=== PATIENT | female | born 1930 | race Caucasian/White ===

== ENCOUNTER 2018-10-06 08:42 | Inpatient (IN) ==
[2018-10-06 09:34] LABS: Hematocrit 41.3 % (37.0-47.0); Hemoglobin 13.4 gm/dL (12.5-16.0); Mean Cell Volume 97.9 fl (78-100); Mean Corpuscular Hemoglobin 31.8 pg (27-31); Mean Corpuscular Hgb Conc 32.4 g/dl (32-36); Mean Platelet Volume 10.8 fl (8-12.5); Neutrophil # 3.1 K/mm3 (1.3-6.0); Neutrophil % 60.7 % (42-75.0); Platelet Count 212 K/mm3 (150-450); Red Blood Count 4.22 M/mm3 (4.2-5.4); Red Cell Distribution Width 14.2 % (11.5-14.0); White Blood Count 5.1 K/mm3 (4.0-10.5)
[2018-10-06 09:50] LABS: Albumin * 3.3 gm/dl (3.4-5.0); Anion Gap 10.5 mmol/L (6.8-13.8); BUN/Creatinine Ratio 17.1 (9.0-21.6); Bilirubin, Total 1.2 mg/dL (0.0-1.1); Calcium * 8.8 mg/dL (7.9-10.9); Carbon Dioxide 28.9 mmol/L (24-32.6); Potassium 4.4 mmol/L (3.4-4.6); Total Protein 7.2 gm/dL (6.2-8.2); Troponin I 0.088 ng/mL (0.00-0.10)
[2018-10-06 10:14] LABS: Urine Bilirubin Negative (NEGATIVE); Urine Blood Negative /ul (NEGATIVE); Urine Ketone Negative (NEGATIVE); Urine Nitrite Negative (NEGATIVE); Urine Protein Negative (NEGATIVE); Urine Specific Gravity <=1.005 SP.GR. (1.005-1.010); Urine Urobilinogen Normal (NORMAL); Urine pH 6.5 pH (5.0-7.0)
[2018-10-06 10:20] LABS: Urine Appearance Clear (CLEAR); Urine Bacteria TRACE; Urine Color Yellow; Urine RBC None Seen /hpf (0-5); Urine WBC 0-5 /hpf (0-5)
--- NOTE | 2018-10-06 11:40 | ERNOTE ---
Medical Problem HPI - Narrative Date of Service: 10/06/18 - General Chief Complaint: General Assessment Time Seen by Provider: 10/06/18 09:07 Source: patient Exam Limitations: no limitations - Immun/Allergies/Home Medications Immunizations: IMMUNIZATION HX Immunizations Up to Date No History of Influenza Vaccine No Hx Pneumococcal Vaccination No Allergies/Adverse Reactions: Allergies Sulfa (Sulfonamide Antibiotics) [Sulfa(Sulfonamide Antibiotics)] Allergy (Intermediate, Verified 09/14/18 13:08) rash pravastatin Allergy (Mild, Verified 09/14/18 13:08) muscle aches propoxyphene HCl [From Darvon] Adverse Reaction (Intermediate, Verified 09/14/18 13:08) Vomiting Home Medications: HOME MEDICATIONS Acetaminophen [Pain & Fever] 500 mg PO Q4H PRN 06/04/12 [Last Taken 05/30/14 2 1:00] Multivitamin [Multivitamins] 1 ea PO DAILY 06/04/12 [Last Taken 05/30/14 09:00] [place]-3/Dha/Epa/Fish Oil [Fish Oil 1,000 mg Softgel] 2 tab PO DAILY 06/04/12 [Last Taken 05/30/14 09:00] Cholecalciferol (Vitamin D3) [Vitamin D3] 2,000 unit PO DAILY 02/28/16 [Last Taken Unknown] aspirin 81 mg chewable tablet 162 mg PO DAILY tab 03/04/18 [Last Taken Unknown] digoxin 125 mcg tablet 0.125 mg PO MOWEFR #90 tab 06/15/18 [Last Taken Unknown] levothyroxine 75 mcg tablet 75 mcg PO DAILY #90 tab 06/15/18 [Last Taken Unknown] furosemide 20 mg tablet 20 mg PO DAILY #90 tab 08/11/18 [Last Taken Unknown] metoprolol tartrate 50 mg tablet 50 mg PO BID #180 tab 08/11/18 [Last Taken Unknown] - History of Present History Narrative: Patient presents to the ED with concern for stroke. She relates that she read fine last night and felt fine. This morning she got up and tried to read and could not read text like normal. Small text mostly. having trouble with the works. no other Sx with this. No CP, other vison problems, speech problems, new N/T/W. This was bilateral symptoms. No CP or SOB. Yhe onset of these Sx is unknown, she could last read last night and since her Sx are only with reading the Sx was identified this morning so the last know time that she was normal was last night. Denies other Sx with this. Has a fib and is on 2 baby ASA per day. Timing: other - noticed only with reading Modifying Factors - (Improves): Present: other - nothing Modifying Factors - (Worsens): Present: other - nothing Review of Systems - Review of Systems Constitutional: Absent: fever EYE: Present: see HPI ENT: Absent: sore throat Respiratory: Absent: shortness of breath Cardiology: Absent: chest pain Gastrointestinal/Abdominal: Absent: abdominal pain Genitourinary: Absent: dysuria Musculoskeletal: Present: no symptoms reported All Other Systems: All systems neg except as marked Medical History (Last Reviewed 10/06/18 @ 11:47 by Mark Bright MD) Atrial fibrillation Onset Date: ~2011 PAF-Converted spontaneously. Given IV Cardizem in ER on 04/11/2012 Breast mass Onset Date: ~1992 left breast nodule Congestive heart failure Onset Date: ~2015 Malignant melanoma of skin Onset Date: ~1982 right leg, face Onychomycosis Onset Date: ~2001 Osteopenia Onset Date: ~2001 Osteoporosis Onset Date: ~2005 Peptic ulcer Onset Date: ~1996 Sciatica Onset Date: ~1993 Anxiety Onset Date: Unknown Hyperlipidemia Onset Date: Unknown Hypertension Onset Date: Unknown Hypothyroidism Onset Date: Unknown IBS (irritable bowel syndrome) Onset Date: ~1996 Closed left hip fracture Onset Date: ~2014 Wrist fracture, right Onset Date: ~1992 Surgical History: Surgical History (Last Reviewed 10/06/18 @ 11:47 by Mark Bright MD) H/O adenoidectomy Onset Date: Unknown H/O breast biopsy Onset Date: ~1988 History of appendectomy Onset Date: ~1975 History of hemiarthroplasty of left hip Onset Date: ~2014 History of tonsillectomy Onset Date: Unknown History of total abdominal hysterectomy and bilateral salpingo-oophorectomy Onset Date: ~1975 Right inguinal hernia Onset Date: Unknown excision of malignant melanoma Onset Date: Unknown Family History: Family History (Last Reviewed 10/06/18 @ 11:47 by Mark Bright MD) Father CAD (coronary artery disease) Mother No problems noted. Social History: Preferred Language [place] Do you have any yarsani or Yes: anabaptism cultural preference? Smoking Status Former smoker Abuse History No History of abuse Psych History No pertinent hx Alcohol Use none Drug Use none (Last Updated 09/29/18 @ 15:33 by Salvatore Franco MD) No Social History Section defined Physical Exam - Physical Exam General Appearance: Present: alert, no apparent distress Head Exam: Present: normal inspection, no evidence of injury Eye Exam: Normal inspection: bilateral, PERRL: bilateral, EOMI: bilateral Ears, Nose, Throat: Present: normal ENT inspection Neck: Present: normal inspection, nontender Respiratory: Present: no respiratory distress, normal breath sounds, no a ccessory muscle use, lungs clear Cardiovascular/Chest: Present: normal peripheral pulses, irregularly irregular Gastrointestinal/Abdominal: Present: normal bowel sounds, nontender, nondistended, soft Back Exam: Absent: CVA tenderness (R), CVA tenderness (L) Extremity Exam: Present: normal inspection Neurological Exam: Present: alert, no motor/sensory deficits, other - NIH - 0. No pronator drift. Gait normal. Full LE strength. Finger to nose wnl. She can read my badge but states that with small text she has problems. Skin Exam: Present: normal color, warm/dry Progress - Results and Orders Patient's Lab Results:: I have reviewed the patient's lab results. - Vital Signs Patient's Vital Signs:: I have reviewed the patient's vital signs. Vital Signs: Vital Signs 10/06/18 08:42 10/06/18 10:09 10/06/18 10:54 Temperature 37.0 C Pulse Rate 90 73 86 Respiratory Rate 18 16 16 Blood Pressure 152/93 H 131/94 H 144/89 O2 Sat by Pulse Oximetry 93 93 96 - EKG EKG #1 EKG read: Interp. by me EKG Comments: A fib rate 75. Non-specific ST/T wave changes, no STEMI noted. - CT/Ultrasound CT/Ultrasound Narrative: I reviewed official radiology report for CT head - Progress/Reassessment Chief Complaint: General Assessment Progress Note-Subjective: 10/06/18 11:51 Patient presents to the ED with possible stroke like Sx. She was last known to not have these Sx last night so she is out of any window for acute intervention. Her Sx are mild and NIH scale 0 right now but subtle Sx are still subjectively present. D/W Dr Franco, observation status and MRI which I have ordered. Once again the patient is out of any tPA window. Patient and family agreeable and notified of results . Departure Clinical Impression: Stroke-like symptom, Abnormal head CT - Departure Disposition: Still a patient Condition: Stable
[2018-10-06] MEDS ORDERED: NORMAL SALINE 1,000 ML IV PRN (12:15)
[2018-10-06] MEDS ORDERED: ASPIRIN 81 MG TAB.CHEW PO SCH (17:00)
--- NOTE | 2018-10-06 17:05 | HP ---
Chief Complaint - Chief Complaint Date of Service: 10/06/18 Time of Service: 17:04 Chief Complaint: eyes cannot focus History of Present Illness: Kassy Escudero, is an 87-year-old white female, with past medical history of hypertension, chronic atrial fibrillation, hyperlipidemia, hypothyroidism, chronic renal failure stage III, who was admitted on 10/06/2018 because of " my eys cannot focus". The patient was in her usual self until when she woke up this morning and started reading her book which she usually does every morning and noticed that she cannot focus on the words. She was not able to understand what she was reading because of this. She was brought to the emergency room where a head CT scan showed possible left occipital infarct. Her labs were basically stable. Her EKG showed atrial fibrillation with rate controlled. She was admitted for observation and an MRI was done which showed acute to subacute left occipital lobe ischemic infarct, multifocal hemosiderin deposit consider amyloid angiopathy versus numerous cavernous angiomas versus multifocal prior bleeds. Chronic extensive microvascular ischemic disease changes, prior lacunar infarcts and atrophy. The patient was on Coumadin before for her ch ronic atrial fibrillation but lately because of her increasing balance problems with her increased risk of falls and after discussion, she decided to have her Coumadin changed to baby aspirins. Medical History (Last Reviewed 10/06/18 @ 12:50 by Sharlene Skaggs RN) Atrial fibrillation Onset Date: ~2011 PAF-Converted spontaneously. Given IV Cardizem in ER on 04/11/2012 Breast mass Onset Date: ~1992 left breast nodule Congestive heart failure Onset Date: ~2015 Malignant melanoma of skin Onset Date: ~1982 right leg, face Onychomycosis Onset Date: ~2001 Osteopenia Onset Date: ~2001 Osteoporosis Onset Date: ~2005 Peptic ulcer Onset Date: ~1996 Sciatica Onset Date: ~1993 Anxiety Onset Date: Unknown Hyperlipidemia Onset Date: Unknown Hypertension Onset Date: Unknown Hypothyroidism Onset Date: Unknown IBS (irritable bowel syndrome) Onset Date: ~1996 Closed left hip fracture Onset Date: ~2014 Wrist fracture, right Onset Date: ~1992 Surgical History: Surgical History (Last Reviewed 10/06/18 @ 12:51 by Sharlene Skaggs RN) H/O adenoidectomy Onset Date: Unknown H/O breast biopsy Onset Date: ~1988 History of appendectomy Onset Date: ~1975 History of hemiarthroplasty of left hip Onset Date: ~2014 History of tonsillectomy Onset Date: Unknown History of total abdominal hysterectomy and bilateral salpingo-oophorectomy Onset Date: ~1975 Right inguinal hernia Onset Date: Unknown excision of malignant melanoma Onset Date: Unknown Family History: Family History (Last Reviewed 10/06/18 @ 12:51 by Sharlene Skaggs RN) Father CAD (coronary artery disease) Mother No problems noted. Social History: Patient Lives/Resources Home Utilized Occupation retired Preferred Language Singaporean Do you have any church or No cultural preference? Smoking Status Former smoker Have you smoked in the past 12 No months Do you dip or chew tobacco No Abuse History No History of abuse Psych History No pertinent hx Alcohol Use none Drug Use none (Last Updated 09/29/18 @ 15:33 by Salvatore Franco MD) No Social History Section defined Review Of Systems (GEN) - Review of Systems Generalized/Overall Review: Absent: Weakness, Chills, Fever EENTM: Present: Blurred Vision, Double Vision Respiratory: Absent: Cough, Shortness of Breath Cardiac: Absent: Chest Pain, Edema Abdominal: Absent: Nausea, Vomiting Genitourinary: Absent: Urgency, Frequency Musculoskeletal: Present: Joint Pain Neurological: Absent: Headache, Numbness, Parasthesia, Tingling, Tremors, Weakness Skin: Absent: Rash, Bruising Endocrine: Absent: Intolerance to Cold, Intolerance to Heat Immunizations: IMMUNIZATION HX Immunizations Up to Date No History of Influenza Vaccine No Hx Pneumococcal Vaccination No Allergies/Adverse Reactions: Allergies Allergy/AdvReac Type Severity Reaction Status Date / Time Sulfa (Sulfonamide Allergy Intermediate rash Verified 10/06/18 12:42 Antibiotics) [Sulfa(Sulfonamide Antibiotics)] pravastatin Allergy Mild muscle Verified 10/06/18 12:42 aches propoxyphene HCl AdvReac Intermediate Vomiting Verified 10/06/18 12:42 [From Darvon] Home Medications: HOME MEDICATIONS Acetaminophen [Pain & Fever] 500 mg PO Q4H PRN 06/04/12 [Last Taken 05/30/14 21:00] Multivitamin [Multivitamins] 1 ea PO DAILY 06/04/12 [Last Taken 05/30/14 09:00] [place]-3/Dha/Epa/Fish Oil [Fish Oil 1,000 mg Softgel] 2 tab PO DAILY 06/04/12 [Last Taken 05/30/14 09:00] Cholecalciferol (Vitamin D3) [Vitamin D3] 2,000 unit PO DAILY 02/28/16 [Last Taken Unknown] aspirin 81 mg chewable tablet 162 mg PO DAILY tab 03/04/18 [Last Taken Unknown] digoxin 125 mcg tablet 0.125 mg PO MOWEFR #90 tab 06/15/18 [Last Taken Unknown] levothyroxine 75 mcg tablet 75 mcg PO DAILY #90 tab 06/15/18 [Last Taken Unknown] furosemide 20 mg tablet 20 mg PO DAILY #90 tab 08/11/18 [Last Taken Unknown] metoprolol tartrate 50 mg tablet 50 mg PO BID #180 tab 08/11/18 [Last Taken Unknown] Herbal Complex No.239 [Whole Body Joint Support] 1 ea PO BID 10/06/18 [Last Taken Unknown] Exam - Exam Vital Signs: Vital Signs - Last Taken Temp 36.6 C 10/06/18 14:57 Pulse 67 10/06/18 14:57 Resp 20 10/06/18 14:57 BP 165/74 H 10/06/18 14:57 Pulse Ox 97 10/06/18 14:57 Constitutional: Present: Alert, Oriented x3, Cooperative ENT Exam: Present: hearing grossly normal Eye Exam: bilateral eye: normal inspection, PERRL, EOMI Neck: Present: supple Respiratory: Present: No rales, No wheezing Cardiovascular/Chest: Present: no JVD, systolic murmur, irregularly irregular Abdomen: Present: Normal bowel sounds, soft, nontender, nondistended Extremity: Present: no pedal edema, no calf tenderness Neurologic: 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: 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 as tested, no motor/sensory deficits, oriented x 3 Diagnostic Studies: Abnormal Lab Results 10/06/18 10/06/18 Range/Units 09:25 09:25 MCH 31.8 H (27-31) pg RDW 14.2 H (11.5-14.0) % Monocytes % 13.7 H (0.0-9) % Lymphocytes # 1.14 L (1.5-3.5) k/mm3 Est GFR (Non-Af Amer) 44 L (60-130) mL/min Total Bilirubin 1.2 H (0.0-1.1) mg/dL ALT 17 L (19-67) U/L Albumin 3.3 L (3.4-5.0) gm/dl Laboratory Results WBC 5.1 K/mm3 (4.0-10.5) 10/06/18 09:25 RBC 4.22 M/mm3 (4.2-5.4) 10/06/18 09:25 Hgb 13.4 gm/dL (12.5-16.0) 10/06/18 09:25 Hct 41.3 % (37.0-47.0) 10/06/18 09:25 MCV 97.9 fl (78-100) 10/06/18 09:25 MCH 31.8 pg (27-31) H 10/06/18 09:25 MCHC 32.4 g/dl (32-36) 10/06/18 09:25 RDW 14.2 % (11.5-14.0) H 10/06/18 09:25 Plt Count 212 K/mm3 (150-450) 10/06/18 09:25 MPV 10.8 fl (8-12.5) 10/06/18 09:25 Immature Gran % (Auto) 0.20 % (0.001-0.429) 10/06/18 09:25 Immature Gran # (Auto) 0.01 K/mm3 (0.000-0.0310) 10/06/18 09:25 Neutrophils % 60.7 % (42-75.0) 10/06/18 09:25 Lymphocytes % 22.3 % (20-51) 10/06/18 09:25 Monocytes % 13.7 % (0.0-9) H 10/06/18 09:25 Eosinophils % 2.3 % (0.0-3.0) 10/06/18 09:25 Basophils % 0.8 % (0.0-1.0) 10/06/18 09:25 Nucleated RBC % 0.0 k/mm3 (0-1) 10/06/18 09:25 Neutrophils # 3.1 K/mm3 (1.3-6.0) 10/06/18 09:25 Lymphocytes # 1.14 k/mm3 (1.5-3.5) L 10/06/18 09:25 Monocytes # 0.7 k/mm3 (0.0-1.0) 10/06/18 09:25 Eosinophils # 0.1 k/mm3 (0.0-0.7) 10/06/18 09:25 Absolute Basophils 0.0 k/mm3 (0.0-0.1) 10/06/18 09:25 Sodium 136 mmol/L (132-142) 10/06/18 09:25 Plasma Sodium 136 mmol/L (130-142) 10/06/18 09:25 Potassium 4.4 mmol/L (3.4-4.6) 10/06/18 09:25 Chloride 101 mmol/L (97-106) 10/06/18 09:25 Carbon Dioxide 28.9 mmol/L (24-32.6) 10/06/18 09:25 Anion Gap 10.5 mmol/L (6.8-13.8) 10/06/18 09:25 BUN 21 mg/dL (3-23) 10/06/18 09:25 Creatinine 1.23 mg/dL (0.4-1.4) 10/06/18 09:25 Est GFR (Non-Af Amer) 44 mL/min (60-130) L 10/06/18 09:25 BUN/Creatinine Ratio 17.1 (9.0-21.6) 10/06/18 09:25 Random Glucose 106 mg/dL (70-110) 10/06/18 09:25 Calcium 8.8 mg/dL (7.9-10.9) 10/06/18 09:25 Calcium Adj for Albumin 9.0 mg/dL (8.4-10.2) 10/06/18 09:25 Total Bilirubin 1.2 mg/dL (0.0-1.1) H 10/06/18 09:25 AST 25 U/L (0-48) 10/06/18 09:25 ALT 17 U/L (19-67) L 10/06/18 09:25 Alkaline Phosphatase 73 U/L (50-170) 10/06/18 09:25 Troponin I 0.088 ng/mL (0.00-0.10) 10/06/18 09:25 Total Protein 7.2 gm/dL (6.2-8.2) 10/06/18 09:25 Albumin 3.3 gm/dl (3.4-5.0) L 10/06/18 09:25 Urine Color Yellow 10/06/18 10:08 Urine Appearance Clear (CLEAR) 10/06/18 10:08 Urine pH 6.5 pH (5.0-7.0) 10/06/18 10:08 Ur Specific [place] <=1.005 SP.GR. (1.005-1.010) 10/06/18 10:08 Urine Protein Negative mg/dL (NEGATIVE) 10/06/18 10:08 Urine Glucose (UA) Negative mg/dL (NEGATIVE) 10/06/18 10:08 Urine Ketones Negative mg/dL (NEGATIVE) 10/06/18 10:08 Urine Blood Negative /ul (NEGATIVE) 10/06/18 10:08 Urine Nitrate Negative (NEGATIVE) 10/06/18 10:08 Urine Bilirubin Negative mg/dl (NEGATIVE) 10/06/18 10:08 Urine Urobilinogen Normal EU/dl (NORMAL) 10/06/18 10:08 Ur Leukocyte Esterase Negative /ul (NEGATIVE) 10/06/18 10:08 Urine RBC None seen /hpf (0-5) 10/06/18 10:08 Urine WBC 0-5 /hpf (0-5) 10/06/18 10:08 Ur Epithelial Cells 0-5 /hpf (0-5) 10/06/18 10:08 Urine Bacteria Trace (NONE) 10/06/18 10:08 Urine Culture Comments No culture indicated 10/06/18 10:08 Assessment/Plan - Narrative Narrative: Will continue with her home medications with some exceptions. - Assessment/Plan (1) CVA (cerebral vascular accident) Assessment: Acute CVA left occipital lobe. Probably embolic but because of report of extensive hemosiderin prigment depositons probably due to chronic multifocal bleeds vs amyloid aniopathy vs cavernpus angiomas we will defer from starting Coumadin or NOAGs. We will also decrease her aspirin to one baby aspirin a day instead of 2 which was her usual dose. This was discussed with Dr. Dahl who recommends doing the usual workup for CVAechocardiogram, carotid ultrasound and likely a follow-up CTS in 10-14 days and a follow-up with neurology in 10-14 days. Will refer patient to PT/ OT for evaluation. We will defer speech therapy evaluation for now she has no problems with swallowing and speech. Problem: Chronic Qualifiers: CVA mechanism: unspecified Qualified Code(s): I63.9 - Cerebral infarction, unspecified (2) Hypothyroidism Problem: Chronic Qualifiers: Hypothyroidism type: unspecified Qualified Code(s): E03.9 - Hypothyroidism, unspecified (3) Hyperlipidemia Problem: Chronic Qualifiers: Hyperlipidemia type: pure hypercholesterolemia Qualified Code(s): E78.00 - Pure hypercholesterolemia, unspecified; E78.0 - Pure hypercholesterolemia (4) A-fib Assessment: rate controlled Problem: Chronic Qualifiers: Atrial fibrillation type: chronic Qualified Code(s): I48.2 - Chronic atrial fibrillation (5) Hypertension Problem: Chronic Qualifiers: Hypertension type: essential hypertension Qualified Code(s): I10 - Essential (primary) hypertension (6) CRF (chronic renal failure) Problem: Chronic Qualifiers: Chronic kidney disease stage: stage 3 (moderate) Qualified Code(s): N18.3 - Chronic kidney disease, stage 3 (moderate)
[2018-10-06] MEDS ORDERED: METOPROLOL TARTRATE 25 MG TABLET PO ONE (17:20)
[2018-10-06] MEDS ORDERED: ACETAMINOPHEN 500 MG TABLET PO PRN (17:28)
[2018-10-06] MEDS: ASPIRIN 81 MG TAB.CHEW PO SCH (17:42)
[2018-10-06] MEDS: METOPROLOL TARTRATE 50 MG TABLET PO SCH (20:36)
[2018-10-06] MEDS ORDERED: ROSUVASTATIN CALCIUM 20 MG TABLET PO SCH (21:00)
[2018-10-07] MEDS ORDERED: LEVOTHYROXINE SODIUM 75 MCG TABLET PO SCH (07:00)
--- NOTE | 2018-10-07 08:18 | PN ---
Progess Note - Interim Date: 10/07/18 Time: 08:16 Narrative: 10/07/18 08:16 Patient is able to read letters today and count fingers grossly. For Echo with bubble study and CUS. Pt will evaluate her today. Possible discharge today or tomorrow.
[2018-10-07 08:26] LABS: Hematocrit 43.9 % (37.0-47.0); Hemoglobin 14.3 gm/dL (12.5-16.0); Mean Cell Volume 99.8 fl (78-100); Mean Corpuscular Hemoglobin 32.5 pg (27-31); Mean Corpuscular Hgb Conc 32.6 g/dl (32-36); Mean Platelet Volume 10.5 fl (8-12.5); Neutrophil # 5.1 K/mm3 (1.3-6.0); Neutrophil % 73.1 % (42-75.0); Platelet Count 204 K/mm3 (150-450); Red Cell Distribution Width 14.1 % (11.5-14.0)
[2018-10-07] MEDS: ASPIRIN 81 MG TAB.CHEW PO SCH (08:31)
[2018-10-07] MEDS: METOPROLOL TARTRATE 50 MG TABLET PO SCH (08:32)
[2018-10-07 08:36] LABS: Anion Gap 12.6 mmol/L (6.8-13.8); BUN/Creatinine Ratio 16.2 (9.0-21.6); Calcium * 8.8 mg/dL (7.9-10.9); Carbon Dioxide 26.5 mmol/L (24-32.6); Estimated Creat Clear 23.7; Potassium 4.1 mmol/L (3.4-4.6)
[2018-10-07] MEDS ORDERED: FUROSEMIDE 20 MG TABLET PO SCH (09:00)
[2018-10-07] MEDS ORDERED: CHOLECALCIFEROL 1,000 UNIT CAPSULE PO SCH (09:00)
[2018-10-07] MEDS ORDERED: LISINOPRIL 10 MG TABLET PO SCH (09:00)
[2018-10-07] MEDS ORDERED: MULTIVITAMINS 1 CAP CAPSULE PO SCH (09:00)
[2018-10-07] MEDS ORDERED: DIGOXIN 0.125 MG TABLET PO SCH (09:00)
--- NOTE | 2018-10-07 12:05 | DS ---
(1) CVA (cerebral vascular accident) Diagnosis(s): left occipital lobe Problem: Acute Qualifiers: CVA mechanism: unspecified Qualified Code(s): I63.9 - Cerebral infarction, unspecified (2) Hypothyroidism Problem: Chronic Qualifiers: Hypothyroidism type: unspecified Qualified Code(s): E03.9 - Hypothyroidism, unspecified (3) Hyperlipidemia Problem: Chronic Qualifiers: Hyperlipidemia type: pure hypercholesterolemia Qualified Code(s): E78.00 - Pure hypercholesterolemia, unspecified; E78.0 - Pure hypercholesterolemia (4) A-fib Problem: Chronic Qualifiers: Atrial fibrillation type: chronic Qualified Code(s): I48.2 - Chronic atrial fibrillation (5) Hypertension Problem: Chronic Qualifiers: Hypertension type: essential hypertension Qualified Code(s): I10 - Essential (primary) hypertension (6) CRF (chronic renal failure) Problem: Chronic Qualifiers: Chronic kidney disease stage: stage 3 (moderate) Qualified Code(s): N18.3 - Chronic kidney disease, stage 3 (moderate) Description of Stay: Kassy Escudero, is an 87-year-old white female, with past medical history of hypertension, chronic atrial fibrillation, hyperlipidemia, hypothyroidism, chronic renal failure stage III, who was admitted on 10/06/2018 because of " my eyes cannot focus". The patient was in her usual self until when she woke up this morning and started reading her book which she usually does every morning and noticed that she cannot focus on the words. She was not able to understand what she was reading because of this. She was brought to the emergency room where a head CT scan showed possible left occipital infarct. Her labs were basically stable. Her EKG showed atrial fibrillation with rate controlled. She was admitted for observation and an MRI was done which showed acute to subacute left occipital lobe ischemic infarct, multifocal hemosiderin deposits consider amyloid angiopathy versus numerous cavernous angiomas versus multifocal prior bleeds. Chronic extensive microvascular ischemic disease changes, prior lacunar infarcts and atrophy. The patient was on Coumadin before for her chronic atrial fibrillation but lately because of her increasing balance problems with her increased risk of falls and after discussion, she decided to have her Coumadin changed to baby aspirins. She did not have any focal deficits except for her vision. her reading this morning has improved. I did discuss this with Dr. Dahl, neurologist. and he thinks it is embolic but cannot start on anticoagulant due to multifocal hemosiderin pigment deposition consider amyloid angiopathy vs cavernous angiomas vs multifocal bleeds. He recommended a follow up CTS in 10-14 days and just put her on a single baby ASA for now. He wants her to be followed up neurology in 10-14 days. Her Echo was done but official reading is pending. Preliminary reading shows elevated RSVP. Will likely do a CTA following P.E. protocol on outpatient basis. CUS is pending. Procedures Performed: none Results and Findings: Lab Pending Results 10/06/18 09:25: WBC 5.1, RBC 4.22, Hgb 13.4, Hct 41.3, MCV 97.9, MCH 31.8 H, MCHC 32.4, RDW 14.2 H, Plt Count 212, MPV 10.8, Immature Gran % (Auto) 0.20, Immature Gran # (Auto) 0.01, Neutrophils % 60.7, Lymphocytes % 22.3, Monocytes % 13.7 H, Eosinophils % 2.3, Basophils % 0.8, Nucleated RBC % 0.0, Neutrophils # 3.1, Lymphocytes # 1.14 L, Monocytes # 0.7, Eosinophils # 0.1, Absolute Basophils 0.0 10/06/18 09:25: Sodium 136, Plasma Sodium 136, Potassium 4.4, Chloride 101, Carbon Dioxide 28.9, Anion Gap 10.5, BUN 21, Creatinine 1.23, Est GFR (Non-Af Amer) 44 L, BUN/Creatinine Ratio 17.1, Random Glucose 106, Calcium 8.8, Calcium Adj for Albumin 9.0, Total Bilirubin 1.2 H, AST 25, ALT 17 L, Alkaline Phosphatase 73, Troponin I 0.088, Total Protein 7.2, Albumin 3.3 L 10/06/18 10:08: Urine Color Yellow, Urine Appearance Clear, Urine pH 6.5, Ur Specific [place] <=1.005, Urine Protein Negative, Urine Glucose (UA) Negative, Urine Ketones Negative, Urine Blood Negative, Urine Nitrate Negative, Urine Bilirubin Negative, Urine Urobilinogen Normal, Ur Leukocyte Esterase Negative, Urine RBC None seen, Urine WBC 0-5, Ur Epithelial Cells 0-5, Urine Bacteria Trace, Urine Culture Comments No culture indicated 10/07/18 08:20: WBC 7.0 D, RBC 4.40, Hgb 14.3, Hct 43.9, MCV 99.8, MCH 32.5 H, MCHC 32.6, RDW 14.1 H, Plt Count 204, MPV 10.5, Immature Gran % (Auto) 0.30, Immature Gran # (Auto) 0.02, Neutrophils % 73.1, Lymphocytes % 16.6 L, Monocytes % 6.4, Eosinophils % 3.0, Basophils % 0.6, Nucleated RBC % 0.0, Neutrophils # 5.1, Lymphocytes # 1.17 L, Monocytes # 0.5, Eosinophils # 0.2, Absolute Basophils 0.0 10/07/18 08:20: Sodium 137, Plasma Sodium 138, Potassium 4.1, Chloride 102, Carbon Dioxide 26.5, Anion Gap 12.6, BUN 21, Creatinine 1.30, Est GFR (Non-Af Amer) 41 L, BUN/Creatinine Ratio 16.2, Random Glucose 150 H D, Calcium 8.8 Discharge Location: Home Disposition: Home self-care Condition: Stable Discharge Activity: Activity as tolerated Discharge Diet: Low salt, Low fat/chol Referrals: Salvatore Franco MD [Primary Care Provider] - Additional Patient Instructions (free text): -Please make TCM appointment unless long term discharge. Thank you! Laureen @ [phone]. Follow up with PCP in 1 week. Make an appointment with Dr. Dahl's neurology group in 14 days. Schedule a follow up head CTS w/o contrast in 10 days. Prescriptions (Any new or edited meds): Aspirin [Aspirin Chewable] 81 mg PO DAILY #30 tab.chew Lisinopril [Zestril] 10 mg PO DAILY #30 tab Rosuvastatin Calcium [Crestor] 20 mg PO HS #30 tab Complete Home Medications List: Complete Home Medication List: Acetaminophen [Pain & Fever] 500 mg PO Q4H PRN 06/04/12 Multivitamin [Multivitamins] 1 ea PO DAILY 06/04/12 Cholecalciferol (Vitamin D3) [Vitamin D3] 2,000 unit PO DAILY 02/28/16 digoxin 125 mcg tablet 0.125 mg PO MOWEFR #90 tab 06/15/18 levothyroxine 75 mcg tablet 75 mcg PO DAILY #90 tab 06/15/18 furosemide 20 mg tablet 20 mg PO DAILY #90 tab 08/11/18 metoprolol tartrate 50 mg tablet 50 mg PO BID #180 tab 08/11/18 Aspirin [Aspirin Chewable] 81 mg PO DAILY #30 tab.chew 10/07/18 Lisinopril [Zestril] 10 mg PO DAILY #30 tab 10/07/18 Rosuvastatin Calcium [Crestor] 20 mg PO HS #30 tab 10/07/18
[2018-10-07 17:09] VITALS: BP 138/72
--- NOTE | 2018-10-12 11:43 | ECHO ---
This report is available in the EMR
== END 2018-10-07 15:59 | disposition home or self-care (01) | DRG 66 ==
LOC: MS 08:42 → ER 08:42 → MS 12:44
PROVIDERS: ADMIT Internal Medicine; ATTEND Internal Medicine
DX: E03.9 Hypothyroidism, unspecified; I63.40 Cerebral infarction due to embolism of unspecified cerebral artery; I48.91 Unspecified atrial fibrillation; Z79.01 Long term (current) use of anticoagulants; E78.00 Pure hypercholesterolemia, unspecified; R29.700 NIHSS score 0; I12.9 Hypertensive chronic kidney disease with stage 1 through stage 4 chronic kidney disease, or unspecified chronic kidney disease; H53.8 Other visual disturbances; N18.3 Chronic kidney disease, stage 3 (moderate); I50.9 Heart failure, unspecified; I11.0 Hypertensive heart disease with heart failure; I48.2 Chronic atrial fibrillation; I63.9 Cerebral infarction, unspecified; Z87.891 Personal history of nicotine dependence
CPT/HCPCS: 36415; 70450; 70553; 80048; 80053; 81001; 84484; 85025; 93005; 93306; 93880; 97116; 97161; 99285; A9576